=== PATIENT | male | born 1955 | race Caucasian/White ===

== ENCOUNTER 2024-04-15 12:33 | Inpatient (IN) | payer MEDICARE, MEDICAID, SELFPAY ==
[2024-04-15] VITALS (7 sets, daily range): BP systolic 115–158; BP diastolic 76–100; PULSE 66–94; RESP 18–19; TEMP 36.5–36.6; O2SAT 93–96; BMI 25.0
--- NOTE | 2024-04-15 12:36 | XRR_ITS ---
PROCEDURE INFORMATION: Exam: XR Chest Exam date and time: 04/15/2024 2:33 PM Age: 68 years old Clinical indication: Pain; Angina pectoris; Additional info: Chest pain TECHNIQUE: Imaging protocol: Radiologic exam of the chest. Views: 1 view. COMPARISON: No relevant prior studies available. FINDINGS: Lungs: There is no consolidation. Pleural spaces: There is no pleural effusion or pneumothorax. Heart/Mediastinum: Cardiomediastinal contours are unremarkable. Bones/joints: Bones are unremarkable. XR/XR chest 1V portable [id number] IMPRESSION: No acute findings.
--- NOTE | 2024-04-15 12:37 | ECG_ITS ---
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 Measurements Intervals [place] Rate: 94 P: 44 RI: 136 QRS: 3 QRSD: 88 T: 59 QT: 355 QTc: 445 Interpretive Statements SINUS RHYTHM ST ELEVATION, CONSIDER INFERIOR INJURY [MARKED ST ELEVATION W/O NORMALLY INFLECTED T-WAVE IN II/aVF] ACUTE RI No previous ECG available for comparison Electronically Signed On 04-15-2024 22:00:39 CDT by Cheryl Trivedi M.D. [id number]
--- NOTE | 2024-04-15 12:38 | XACV_ITS ---
Exam Room: [facility] Ht: 170 cm Wt: 73 kg BSA: 1.86 m2 Gender: Male : 1955 Any Known Allergies: No known allergies Exam Priority: Routine Procedure(s): Procedure Description: Diagnostic procedure Procedure Description: PCI procedure Procedure Description: Drug Eluting Coronary Stent Procedure Description: PTCA Procedure Description: Miscellaneous Procedure Description: ACT Procedure Description: Coronary Angiography Diagnostic Cath Status: Emergency Diagnostic Findings * Left Main is very short and has no significant disease. * Left Anterior Descending has no significant disease. * Right Coronary Artery has mild luminal irregularities. * Mid Circumflex: total thrombotic occlusion, ALY: 0 flow. This is culprit vessel for ST elevation WI. * Coronary angiography shows right dominance. PCI Status: Emergency PCI Indication: Immediate PCI for STEMI Interventional Findings * Procedure detail: We engaged left main artery with XB 3.0 guide catheter. IV heparin was administered to maintain anticoagulation. 0.014 run-through guidewire was used to cross the totally occluded segment. 2.5 x 12 mm semicompliant balloon was used to perform predilation. This was followed by placement of 2.75 x 18 mm resolute Kimball drug-eluting stent. There was a sidebranch plaque shift. It was a small sized sidebranch. We ballooned the ostium of the sidebranch with a 1.5 mm balloon. At this time final angiogram was performed that showed excellent stent expansion, no residual stenosis and ALY-3 flow. Guidewire and guide catheter were removed. 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 * Mid Circumflex: 100% stenosis treated with a AB TREK 2.50X12 RX BALLOON, MDDeepak R MASHA 2.75X18 TAHIR, and AB MINI TREK 1.50X12 RX BALLOON. 0% residual stenosis, ALY: 3 flow. Conclusions 1. Total thrombotic occlusion of mid left circumflex artery s/p successful revascularization with 1 stent.. 2. Mid Circumflex was treated with a Balloon, Drug Eluting Stent, and Balloon. Recommendations * Dual antiplatelet therapy with aspirin and plavix for atleast 1 year. * Aggressive risk factor modification. Smoking cessation advised. * High intensity statin therapy. * Outpatient cardiology follow up in 2 weeks. Interventional RX Recommendation: PCI w/o planned CABG Diagnostic RX Recommendation: PCI w/o planned CABG Anticoagulation: Heparin Pressures Phase:Rest AO : 141 / 91 ( 113 ) @ 1:57:00 PM 108 / 77 ( 90 ) @ 1:59:00 PM 105 / 70 ( 86 ) @ 2:03:00 PM 99 / 66 ( 82 ) @ 2:06:00 PM 95 / 74 ( 85 ) @ 2:08:00 PM 100 / 58 ( 76 ) @ 2:14:00 PM 99 / 82 ( 92 ) @ 2:22:00 PM Clinical Evaluation EBL: 5mL-10mL Procedural Details Pre-Procedure Time Out. Identified patient by full name and date of as verbalized by the patient/guarantor. Does the consent match the physician's order: N/A Emergent. Accurate & Complete Informed Consent: N/A Emergent. Inpatient/Outpatient History & Physical on Chart: N/A Emergent. If H&P is completed, is and addenduem needed: N/A Emergent; If yes, is the addendum complete: N/A Emergent. Visualize and Verify Site with Patient/Guarantor: N/A. Relevant Radiology Images available: N/A Emergent. Pre-op teaching completed and patient verbalized understanding. The risks, benefits, and alternatives of sedation and/or procedure were discussed by physician. The patient agrees to continue. Procedure started. Current Diagnosis : STEMI. [facility] Clinical Fraility Score: 3: Managing Well. 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 Chest Pain Symptom Assessment: Typical Angina Symptoms. Cardiovascular Instability: Yes, if yes, Persistant Ischemic Symptoms. Correct patient, site and procedure confirmed by cath team. Current diagnosis: STEMI. PERRLA. Strong, equal hand coiler operator bilaterally. Lungs clear x 5 lobes. IV Site on Arrival: 18 gauge in the left anticubital. IV Fluids: 0.9% NaCl at KVO. 0 mL infused prior to orthodontic lab technician. Pre Procedural Pulses: bilateral dorsalis pedis was 3+. Pre Procedural Pulses: bilateral posterior tibial was 3+. Pre Procedural Pulses: right radial was 2+. Oxygen started at 2liters/min via nasal canula. right groin was prepped with chloroprep then draped in the usual sterile fashion. right radial was prepped with chloroprep then draped in the usual sterile fashion. Baseline sample Acquired. HR: 74 BPM. Physician arrived. Physician scrubbed in. Immediate Pre-Procedure Time Out. Correct Patient: N/A Emergent; Correct Procedure: N/A Emergent; Correct Site: N/A Emergent; Correct Patient Position: N/A Emergent; Correct Supplies: N/A Emergent; Dried Flammable Prep: N/A Emergent; Blood Products Available: N/A Emergent;. Lidocaine 1% infiltrated to the right radial. Arterial access obtained. A 5 togolese TIG catheter in over wire. Multiple views taken of left coronary artery. Catheter redirected to the RCA. Catheter removed over the exchange wire. PCI Indication: STEMI. 6 togolese XB 3 guide catheter was inserted over the wire. Runthrough guidewire was advanced through the guide catheter to lesion in the mid Circ. Inflation number : 1 A AB TREK 2.50X12 RX BALLOON was prepped and advanced across the Mid CX , then inflated to 10 GENARO for 0:12 seconds. Inflation number: 2 The AB TREK 2.50X12 RX BALLOON was reinflated across the Mid CX, to 8 GENARO for 0:08 seconds. Balloon out. Results checked. Inflation Number : 3 A BAYRON [place] MASHA 2.75X18 TAHIR -Lot Number# _[id number] EXP: 07/12/2024 was prepped and advanced across the Mid CX. The stent was deployed at 12 GENARO for 0:21 seconds. Stent balloon out over wire. Results checked. PCI Indication : Immediate PCI for STEMI. 2.0x12mm Mini Trek balloon inserted and advanced to the CX. Oxygen turned up to 3liters. Balloon unable to cross. Balloon out OTW. Inflation number : 4 A AB MINI TREK 1.50X12 RX BALLOON was prepped and advanced across the Mid CX , then inflated to 8 GENARO for 0:12 seconds. ACT drawn. Results out of range high seconds. Therapeutic limits - pre-heparin administration 90-150 seconds and monitoring heparin during a vascular procedure >250 seconds. Balloon out. Wire out. Results checked. Guide catheter out. A 5 togolese JL3.5 catheter in over wire. Catheter removed over the standard wire. A 5 togolese JR4 catheter in over wire. Multiple views taken of right coronary artery. Catheter removed over the standard wire. A 5 togolese TIG catheter in over wire. Multiple views taken of left coronary artery. Catheter removed over the exchange wire. ACT drawn. Results 289 seconds. Therapeutic limits - pre-heparin administration 90-150 seconds and monitoring heparin during a vascular procedure >250 seconds. A TR Band was successful obtaining hemostatsis at the Right Radial artery insertion site. Complications: None. Post Procedure: Pulses reassessed and unchanged. PERRLA. Strong, equal hand coiler operator bilaterally. No VTE prophylaxis required. Medication's Wasted: Nitro = 49.6 mg. Medication's Wasted: Lidocaine 1% = 15 mL. Medication's Wasted: Other = Versed 1 mg. Total IV fluids: 50 mL. Post-op diagnosis: Stent to the CX. Estimated blood loss: 5mL-10mL. Responsiveness - Normal response to verbal stimuli; alert and oriented, PERRLA. Airway - Unaffected, no intervention required; spontaneous ventilation. Circulation: W/N/L, pulses unchanged. Nausea/Vomiting: No. Procedure completed. Vital chart was stopped. Patient transferred by wheelchair to 1st floor. Access Site Site: Right Radial artery Sheath Size: 6 Fr Hemostasis Method: TR Band Hemostasis Success: Successful Procedure Medications Start: 12:51 PM Stop: 12:51 PM Medication: Versed Amount: 1 mg Route: I.V. Start: 12:52 PM Stop: 12:52 PM Medication: Nitrogylcerin Amount: 200 mcg Route: I.A. Start: 12:53 PM Stop: 12:53 PM Medication: Fentanyl Amount: 25 mcg Route: I.V. Start: 12:56 PM Stop: 12:56 PM Medication: Heparin Amount: 3000 units Route: I.V. Start: 12:57 PM Stop: 12:57 PM Medication: Fentanyl Amount: 25 mcg Route: I.V. Start: 1:04 PM Stop: 1:04 PM Medication: Versed Amount: 1 mg Route: I.V. Start: 1:10 PM Stop: 1:10 PM Medication: Heparin Amount: 1000 units Route: I.V. Start: 1:13 PM Stop: 1:13 PM Medication: Nitrogylcerin Amount: 200 mcg Route: I.C. Start: 1:13 PM Stop: 1:13 PM Medication: Fentanyl Amount: 25 mcg Route: I.V. Start: 1:21 PM Stop: 1:21 PM Medication: Versed Amount: 1 mg Route: I.V. Start: 1:24 PM Stop: 1:24 PM Medication: Fentanyl Amount: 25 mcg Route: I.V. I, the attending physician, have reviewed and verified all procedure medications. Yes, all medications given per verbal order History/Risk Factors Hypertension: No Dyslipidemia: No Peripheral Arterial Disease (PAD): No Myocardial Infarction (WI): No Obesity: No Renal Disease: No Tobacco Use: Current/Recent(w/in 1 year) Prior Interventions PCI: No CABG: No Valve Surgery: No Report Signatures Finalized by John Alarcon MD on 04/18/2024 03:39 PM
--- NOTE | 2024-04-15 12:40 | ED_ITS ---
HPI - Chest Pain General: Chief Complaint: Chest Pain Stated Complaint: CHEST PAIN Time Seen by Provider: 04/15/24 12:36 Source: patient Mode of arrival: ambulatory History of Present Illness: 68-year-old male presents to the emergen cy room with complaints of chest pain that began shortly before arrival. 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 He has Nitropaste in place when he arrives here. He states he previously had a heart attack had an angiogram in [place] about 3 years ago but tells me they did not place any stents to the best of his knowledge. Patient is not diabetic and does not smoke MD complaint: chest pain Onset (ago): minute(s) Prior episodes: Yes Onset: during exertion Pain location: substernal Pain radiation: none Severity: moderate Relieving factors: nothing Exacerbating factors: nothing Associated symptoms: Deny abdominal pain, diaphoresis, dyspnea, fever(s), leg edema, nausea, palpitations, sense of impending doom, syncope or vomiting Treatment prior to arrival: none Review of Systems Const: Denies: fever(s), chills, fatigue, malaise or diaphoresis Card: Reports: chest pain; Denies: palpitations or syncope Resp: Denies: dyspnea GI: Denies: abdominal pain, nausea or vomiting : Denies: dysuria, urinary frequency or urinary urgency Musc: Denies: neck pain or back pain Skin/Breast: Denies: rash Physical Exam Const: GENERAL APPEARANCE: cooperative and comfortable ORIENTATION/CONSCIOUSNESS: Yes awake, Yes oriented to person, Yes oriented to place and Yes oriented to time HENMT: COMMON NORMALS: normocephalic, atraumatic and hearing grossly normal bilaterally HEAD & SCALP: normocephalic and atraumatic Resp: COMMON NORMALS: normal respiratory effort, No retractions, No use of accessory muscles and clear to auscultation bilaterally AUSCULTATION: clear to auscultation bilaterally Cardio: COMMON NORMALS: regular rate, regular rhythm and No murmurs present (Cardio) RATE: regular rate RHYTHM: regular rhythm GI: COMMON NORMALS: Soft to palpation and No hepatosplenomegaly present AUSCULTATION: Yes normoactive bowel sounds PALPATION: Yes Soft to palpation, No Tenderness to palpation present (GI), No Guarding due to palpation present (GI) and Yes No hepatosplenomegaly present Extremity: COMMON NORMALS: normal to inspection, capillary refill normal, no clubbing, cyanosis or edema, no calf tenderness and no pedal edema Neuro: SENSORIUM/ORIENTATION: Yes oriented to person, Yes oriented to place and Yes oriented to time Skin: COMMON NORMALS: no rashes or lesions noted GENERAL SKIN EXAM: no rashes or lesions noted Course Vital Signs: Vital signs: Vital Signs Temperature 97.8 F 04/15/24 12:33 Pulse Rate 93 04/15/24 12:33 Respiratory Rate 18 04/15/24 12:33 Blood Pressure 158/100 04/15/24 12:33 Pulse Oximetry 94 04/15/24 12:33 Oxygen Delivery Me thod Room Air 04/15/24 12:33 MDM - Chest Pain Medical Decision Making STEMI was called in the field by EMS had been activated prior to patient's arrival on arrival EKG confirms patient is still having chest pain he is topical nitro in place his blood pressure remains good EKG shows Inferior ST elevation with T wave inversion and reciprocal changes in V1 and 2. Discussed with Dr. Alarcon who is at the bedside. He is taking the patient directly to the Terrazzo Supervisor. She has received Plavix and heparin. Received aspirin in the field. Medical Records I reviewed the patient's medical records. Lab Data I reviewed the patient's lab results. XR interpretation done by ED provider, pending radiology final review Discharge Plan Discharge Patient Disposition: Admitted As Inpatient Clinical Impression: ST elevation myocardial infarction (STEMI) Condition: Stable Coding Level of Care Code ED Hydroelectric Component Machinist for Edita Munoz
[2024-04-15] MEDS: heparin 5,000 unit/mL INJ 1 mL 4000 UNIT IVP (12:43)
[2024-04-15] MEDS: clopidogrel 300 mg Tablet 600 MG PO (12:44)
--- NOTE | 2024-04-15 12:45 | P.HP_ITS ---
Providers/Chief Complaint 2 Admitting Physician: John Alarcon MD/ Interventional cardiology Chief Complaint: CHEST PAIN History of Present Illness Amado Loaiza is a 68 year old male with past medical history of hypertension presented to hospital with 1 hour of substernal chest pain. He was initially severe but has improved since some now. EKG performed by EMS showing distribution of the lateral leads. STEMI alert was called and patient going to Production Lapping Machine Operator emergently. Review of Systems 2 Const: Denies: fever(s), chills, fatigue, malaise or diaphoresis Card: Reports: chest pain; Denies: palpitations or syncope Resp: Denies: dyspnea GI: Denies: abdominal pain, nausea or vomiting : Denies: dysuria, urinary frequency or urinary urgency Musc: Denies: neck pain or back pain Skin/Breast: Denies: rash Medications/Allergies Home Medications Medication Instructions Recorded Confirmed Last Taken Type lisinopril 20 mg tablet 20 mg PO BID 04/15/24 04/15/24 Unknown History Allergies Allergy/AdvReac Type Severity Reaction Status Date / Time No Known Allergies Allergy Verified 04/15/24 12:38 PFSH Acute 2 PFSH: Medical History Tobacco abuse Hypertension Social History Smoking and tobacco/nicotine status: current every day tobacco/nicotine user Vitals/I&O/Wt Last Vital Signs Temp 97.8 F 04/15/24 12:33 Pulse 93 04/15/24 12:33 Resp 18 04/15/24 12:33 BP 158/100 04/15/24 12:33 Pulse Ox 94 04/15/24 12:33 O2 Del Method Room Air 04/15/24 12:33 Weight last 48 hrs Weight 160 lb Physical Exam 2 Narrative: GENERAL: Patient is alert, awake and oriented x3. [] NECK: No jugular vein distension. [] HEENT: No cyanosis. No icterus. No pallor. [] HEART: Regular S1 and S2. No murmur, rub or gallop. [] LUNGS: Clear to auscultate bilaterally. [] CENTRAL NERVOUS SYSTEM: Grossly nonfocal. [] EXTREMITIES: Lower extremities with 1+ edema bilaterally. Data 04/15/24 12:41 04/15/24 12:41 A&P Assessment and plan (1) ST elevation myocardial infarction (STEMI): (2) Hypertension: (3) Tobacco abuse: Plan Patient has presented with acute lateral wall ST elevation RI. We will emergently take patient to the Production Lapping Machine Operator. Risks and benefits of the procedure have been discussed with the patient. He understands them and wants to proceed. Given aspirin and Plavix load. Also received bolus of heparin. Will order echocardiogram. Attestations 2 Medical Necessity Statement*: Care expected to cross 2 midnights. Patient has presented with acute ST elevation RI and going for emergent coronary angiogram with possible PCI. Coding Level of Care Code Acute Code for [facility] Diagnoses ST elevation myocardial infarction (STEMI) I21.3 Hypertension I10 Tobacco abuse Z72.0
[2024-04-15 12:50] LABS: Basophils % 0.4 %; Eosinophils # 0.2 10^3/uL (0.0-0.8); Eosinophils % 2.1 %; Hematocrit 46.5 % (37-53); Lymphocytes # 4.3 10^3/uL (0.8-4.8); Lymphocytes % 45.6 %; Mean Corpuscular HGB Conc 34.2 g/dL (30-55); Mean Corpuscular Hemoglobin 31.4 pg (27-33); Mean Corpuscular Volume 91.7 fl (82-101); Mean Platelet Volume 9.4 fL (7.4-10.4); Monocytes # 0.6 10^3/uL (0.2-0.9); Neutrophils # 4.32 10^3/uL (1.8-7.7); Neutrophils % 45.6 %; Nucleated Red Blood Cells % 0 %; Platelet Count 290 10^3/cmm (157-399); Red Blood Count 5.07 10^6/uL (3.85-5.65); Red Cell Distribution Width 12.7 % (12.1-15.1); White Blood Count 9.49 10^3/uL (3.29-11.43)
[2024-04-15 13:04] LABS: Troponin(5th) Baseline 11 ng/L (0-15)
[2024-04-15 13:08] LABS: Alanine Aminotransferase 14 U/L (0-41); Albumin Level 3.9 g/dL (3.5-5.2); Alkaline Phosphatase 86 U/L (40-130); Anion Gap 13.2 (5-19); Aspartate Amino Transferase 13 U/L (0-40); Blood Urea Nitrogen 17 mg/dL (8-23); Calcium 9.3 mg/dL (8.5-10.5); Carbon Dioxide 22 mmol/L (22-29); Chloride 103 mmol/L (98-107); Creatinine Clr Calc Pharmacy 63.3128; Globulin 2.3 g/dL (1.3-4.6); Glomerular Filtration Rate 66.8 mL/min (90-130); Glucose 112 mg/dL (65-115); Osmolality Calculated 280 mOsm/kg (285-295); Potassium 4.2 mmol/L (3.5-5.1); Sodium 134 mmol/L (136-145); Total Bilirubin 0.8 mg/dL (0.15-1.2); Total Protein 6.2 g/dL (6.6-8.7)
--- NOTE | 2024-04-15 13:41 | USCV_ITS ---
Amado Loaiza Age: 68 Gender: M : 1955 Exam Date: 04/15/2024 15:15 Ordering Phys: John Alarcon M.D ([email or web address]) Technologist: [place] [facility] [place]: post cath BP: 110 / 77 HR: 75 Rhythm: Sinus Technical Quality: Adequate MEASUREMENTS (Male / Female) Normal Values 2D ECHO LV Diastolic Diameter PLAX 3.7 cm 4.2 - 5.9 / 3.9 - 5.3 cm IVS Diastolic Thickness 1.3 cm 0.6 - 1.0 / 0.6 - 0.9 cm IVS Systolic Thickness 1.8 cm LVPW Diastolic Thickness 1.3 cm 0.6 - 1.0 / 0.6 - 0.9 cm LVPW Systolic Thickness 1.6 cm LVOT Diameter 1.9 cm LV Ejection Fraction 2D Teich 64.1 % LV Ejection Fraction MOD 2C 52.5 % LV Ejection Fraction 2C AL 53.1 % LA Diameter 3.7 cm RA Systolic Volume 4C AL 21.9 ml RA Systolic Volume 4C MOD 21.1 ml Aorta at Sinotubular Diameter 2.7 cm M-MODE LA Ao Ratio MM 1.3 AV Cusp Separation MM 1.8 cm DOPPLER AV Peak Velocity 131.0 cm/s LVOT Peak Velocity 78.0 cm/s AV Area Cont Eq vti 2.0 cm squared AV Area Cont Eq pk 1.7 cm squared MV Peak Velocity 96.0 cm/s MV Area PHT 3.1 cm squared Mitral E to A Ratio 0.7 TV Peak Velocity 142.0 cm/s TR Peak Velocity 160.0 cm/s TR Peak Gradient 10.2 mmHg TV Peak E Velocity 95.0 cm/s Right Atrial Pressure 3.0 mmHg Pulmonary Artery Systolic Pressu 13.2 mmHg PV Peak Velocity 72.0 cm/s FINDINGS Left Ventricle Left ventricle is normal size. LV systolic function is normal with EF 55 to 60%. No regional wall motion abnormalities are seen. Grade 1 diastolic dysfunction Right Ventricle Normal in size and function Right Atrium Normal in size Left Atrium Normal in size Mitral Valve Structurally normal mitral valve. Trace mitral regurgitation. Aortic Valve Aortic valve is thickened and calcified. No significant stenosis or regurgitation. Tricuspid Valve Insufficient TR jet to evaluate RVSP. Pulmonic Valve Not well visualized Pericardium Normal Aorta Normal in size IVC Not well visualized CONCLUSIONS LV systolic function is normal with EF of 55-60% Grade 1 diastolic dysfunction Trace mitral regurgitation No comparison studies are available. John Alarcon MD (Electronically Signed) Final Date: 15 April 2024 21:15 S
--- NOTE | 2024-04-15 14:09 | ECG_ITS ---
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 Measurements Intervals [place] Rate: 68 P: 41 [place]: 138 QRS: 2 QRSD: 95 T: 32 QT: 412 QTc: 440 Interpretive Statements SINUS RHYTHM Compared to ECG 04/15/2024 12:35:36 ST (T wave) deviation no longer present Myocardial infarct finding no longer present Electronically Signed On 04-15-2024 22:11:33 CDT by Cheryl Trivedi M.D. [id number]
[2024-04-15 16:36] LABS: Troponin 5 2HR 294.8 ng/L (0-15); Troponin 5 2HR Delta 283.8 ABS# (0-10)
[2024-04-15] MEDS: sodium chloride 0.9% 1,000 ML 100 ML IV (17:12)
[2024-04-15] MEDS: nicotine 21 mg Patch 1 PATCH TRANSDERMA (18:35)
[2024-04-15] MEDS: lisinopril 20 mg Tablet PO (18:35)
--- NOTE | 2024-04-15 18:38 | ECG_ITS ---
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 Measurements Intervals [place] Rate: 61 P: 11 [place]: 138 QRS: -7 QRSD: 94 T: 26 QT: 395 QTc: 398 Interpretive Statements SINUS RHYTHM NONSPECIFIC T-WAVE ABNORMALITY Compared to ECG 04/15/2024 14:09:27 T-wave abnormality now present Electronically Signed On 04-15-2024 22:13:05 CDT by Cheryl Trivedi M.D. [id number]
[2024-04-15 19:11] LABS: Troponin 5 6HR 938.9 ng/L (0-15); Troponin 5 6HR Delta 927.9 ng/L (0-12)
[2024-04-15] MEDS: metoprolol tartrate 25 mg Tablet PO (21:24)
[2024-04-15] MEDS: atorvastatin 40 mg Tablet 80 MG PO (21:24)
[2024-04-16 05:08] LABS: Basophils # 0.1 10^3/uL (0.0-0.1); Basophils % 0.4 %; Eosinophils # 0.2 10^3/uL (0.0-0.8); Eosinophils % 1.7 %; Hematocrit 46.1 % (37-53); Lymphocytes # 3.9 10^3/uL (0.8-4.8); Lymphocytes % 32.4 %; Mean Corpuscular HGB Conc 33.2 g/dL (30-55); Mean Corpuscular Hemoglobin 31.1 pg (27-33); Mean Corpuscular Volume 93.7 fl (82-101); Mean Platelet Volume 9.3 fL (7.4-10.4); Monocytes # 0.8 10^3/uL (0.2-0.9); Monocytes % 6.3 %; Neutrophils # 6.98 10^3/uL (1.8-7.7); Neutrophils % 58.9 %; Nucleated Red Blood Cells % 0 %; Platelet Count 245 10^3/cmm (157-399); Red Blood Count 4.92 10^6/uL (3.85-5.65); Red Cell Distribution Width 12.9 % (12.1-15.1); White Blood Count 11.87 10^3/uL (3.29-11.43)
[2024-04-16 05:27] LABS: Blood Urea Nitrogen 12 mg/dL (8-23); Calcium 8.9 mg/dL (8.5-10.5); Carbon Dioxide 20 mmol/L (22-29); Chloride 106 mmol/L (98-107); Glomerular Filtration Rate 74.5 mL/min (90-130); Glucose 98 mg/dL (65-115); Osmolality Calculated 282 mOsm/kg (285-295); Sodium 136 mmol/L (136-145)
[2024-04-16 05:38] LABS: Anion Gap 14.6 (5-19); Potassium 4.6 mmol/L (3.5-5.1)
[2024-04-16 06:00] VITALS: PULSE 66; BMI 25.0
[2024-04-16 06:11] VITALS: BP 134/87; PULSE 66; RESP 21; O2SAT 93
[2024-04-16 07:42] VITALS: BP 150/98; PULSE 70; RESP 12; TEMP 36.7; O2SAT 90
--- NOTE | 2024-04-16 08:29 | PM.DCS ---
Discharge Providers Date of Admission: 04/15/24 13:14 Date of Discharge: April 16, 2024 Attending Provider at Admission: John Alarcon M.D Attending Provider at Discharge: John Alarcon M.D Diagnoses at Discharge Discharge Diagnosis (1) ST elevation myocardial infarction (STEMI): Status: Acute (2) Hypertension: Status: Acute (3) Tobacco abuse: Status: Acute Reason for Visit Reason for Visit: CHEST PAIN Brief History: 68 year old male with past medical history of hypertension presented to hospital with 1 hour of substernal chest pain. He was initially severe but has improved since some now. EKG performed by EMS showing distribution of the lateral leads. STEMI alert was called and patient going to [place] [facility] emergently. 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 He was observed overnight and stayed stable. Echo showed normal LV systolic function. He was discharged home on dual antiplatelet therapy with aspirin and Plavix. Physical Exam Narrative: GENERAL: Patient is alert, awake and oriented x3. [] NECK: No jugular vein distension. [] HEENT: No cyanosis. No icterus. No pallor. [] HEART: Regular S1 and S2. No murmur, rub or gallop. [] LUNGS: Clear to auscultate bilaterally. [] CENTRAL NERVOUS SYSTEM: Grossly nonfocal. [] EXTREMITIES: Lower extremities with 1+ edema bilaterally. Discharge Data Studies Completed and Pending Completed Studies During Hospitalization Category Date Time Status XR chest 1V portable [id number] Stat Exams 04/15/24 12:36 Completed CV. 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 Laboratory Results WBC 11.87 10^3/uL (3.29-11.43) H 04/16/24 04:54 RBC 4.92 10^6/uL (3.85-5.65) 04/16/24 04:54 Hgb 15.30 g/dL (11.27-16.99) 04/16/24 04:54 Hct 46.1 % (37-53) 04/16/24 04:54 MCV 93.7 fl (82-101) 04/16/24 04:54 MCH 31.1 pg (27-33) 04/16/24 04:54 MCHC 33.2 g/dL (30-55) 04/16/24 04:54 RDW 12.9 % (12.1-15.1) 04/16/24 04:54 Plt Count 245 10^3/cmm (157-399) 04/16/24 04:54 MPV 9.3 fL (7.4-10.4) 04/16/24 04:54 Neut % (Auto) 58.9 % 04/16/24 04:54 Lymph % (Auto) 32.4 % 04/16/24 04:54 [place] % (Auto) 6.3 % 04/16/24 04:54 Eos % (Auto) 1.7 % 04/16/24 04:54 Baso % (Auto) 0.4 % 04/16/24 04:54 Neut # (Auto) 6.98 10^3/uL (1.8-7.7) 04/16/24 04:54 Lymph # (Auto) 3.9 10^3/uL (0.8-4.8) 04/16/24 04:54 [place] # (Auto) 0.8 10^3/uL (0.2-0.9) 04/16/24 04:54 Eos # (Auto) 0.2 10^3/uL (0.0-0.8) 04/16/24 04:54 Baso # (Auto) 0.1 10^3/uL (0.0-0.1) 04/16/24 04:54 Nucleated RBC % (auto) 0 % 04/16/24 04:54 Nucleated RBCs # 0.0 /100WBC 04/16/24 04:54 Sodium 136 mmol/L (136-145) 04/16/24 04:54 Potassium 4.6 mmol/L (3.5-5.1) 04/16/24 04:54 Chloride 106 mmol/L (98-107) 04/16/24 04:54 Carbon Dioxide 20 mmol/L (22-29) L 04/16/24 04:54 Anion Gap 14.6 (5-19) 04/16/24 04:54 BUN 12 mg/dL (8-23) 04/16/24 04:54 Creatinine 1.0 mg/dL (0.7-1.2) 04/16/24 04:54 GFR Calculation 74.5 mL/min (90-130) L 04/16/24 04:54 Glucose 98 mg/dL (65-115) 04/16/24 04:54 Calculated Osmolality 282 mOsm/kg (285-295) L 04/16/24 04:54 Calcium 8.9 mg/dL (8.5-10.5) 04/16/24 04:54 Total Bilirubin 0.8 mg/dL (0.15-1.2) 04/15/24 12:41 AST 13 U/L (0-40) 04/15/24 12:41 ALT 14 U/L (0-41) 04/15/24 12:41 Alkaline Phosphatase 86 U/L (40-130) 04/15/24 12:41 Troponin T Baseline 11 ng/L (0-15) 04/15/24 12:41 Troponin T 120 Minute 294.8 ng/L (0-15) H 04/15/24 15:02 Delta Troponin T 283.8 ABS# (0-10) H* 04/15/24 15:02 Troponin T Hi Sens 6Hr 938.9 ng/L (0-15) H 04/15/24 18:34 Troponin T Hi Sens 6Hr Delta 927.9 ng/L (0-12) H* 04/15/24 18:34 Total Protein 6.2 g/dL (6.6-8.7) L 04/15/24 12:41 Albumin 3.9 g/dL (3.5-5.2) 04/15/24 12:41 Globulin 2.3 g/dL (1.3-4.6) 04/15/24 12:41 Vitals Last Vital Signs Temp 98.0 F 04/16/24 07:42 Pulse 70 04/16/24 07:42 Resp 12 04/16/24 07:42 BP 150/98 04/16/24 07:42 Pulse Ox 90 04/16/24 07:42 O2 Del Method Room Air 04/16/24 07:42 Discharge Plan Discharge Patient Disposition: Home Condition: Stable Prescriptions: New atorvastatin 40 mg Tablet 80 mg PO BEDTIME Qty: 90 3RF clopidogrel 75 mg Tablet 75 mg PO DAILY Qty: 90 3RF aspirin 81 mg Tablet,Delayed Release (Dr/Ec) 81 mg PO DAILY Qty: 90 3RF metoprolol tartrate 25 mg Tablet 25 mg PO BID@0900,2100 Qty: 120 3RF Continued lisinopril 20 mg tablet 20 mg PO BID Discharge Orders: Discharge Order (Routine); Ordered 04/16/24 Ordered By: John Alarcon Referrals: Radha Sandoval FNP [Nurse Practitioner] - 05/12/24 2:30 pm Discharge Diet: Cardiac Patient Instructions: Coronary Angioplasty (DC), Opioid Safety, Post Angiogram Home Care Instructions, Post Heart Attack Stoplight Discharge Attestations Time Spent in Discharge Care*: less than 30 min Quality Metrics Clinical Quality Measures [ Acute Myocardial Infaction { Clinical Trial Participant: No; Contraindication to aspirin: None; Aspirin prescribed; Contraindication to statin: None; Statin prescribed; Contraindication to PCI: None; PCI performed;}] Coding Level of Care Code Acute Code for [facility] Diagnoses ST elevation myocardial infarction (STEMI) I21.3 Hypertension I10 Tobacco abuse Z72.0
--- NOTE | 2024-04-16 08:42 | PC.SOCIAL ---
IMM Update Pg. 2 of IMM updated and reviewed with patient, who verbalized understanding. Copy provided.
--- NOTE | 2024-04-16 08:57 | PC.CHAP ---
Pastoral Care Encounter/Spiritual Assessment Type of Contact [] Declined manager cancer visit [] Patient/Family/Request visit [] Outpatient visit [] Follow-up visit [] Physician referral [] Code/Alert [x] Routine visit [] Staff referral [] Actively dying [] Patient sleeping [x] Family support [] [] Out of room [] Palliative care [] [] Receiving care in room [] Pre-surgical visit [] Trauma [] Long length of stay [] ICU visit [] Other: Relational/Emotional Strength [x] Patient feels connected with others/family/visitors/staff [] Distress [] Loneliness/isolation [] Abandonment Spirituality of Patient [x] Person of Vidya [] Attends Restoration of their Vidya [x] Believes in Prayer [] Reads Bible or Congregation materials [] There are Spiritual issues to be addressed Hydraulic Tester Interventions [x] Prayer [x] Active listening [] Non-anxious presence [x] Spiritual/emotional support [] Crisis/trauma care [] Spiritual counseling [] Bereavement support [] Provided bereavement packet [] Provided Bible/devotional materials [] Provided toy/stuffed animal, coloring book to patient or family member [] Provided Communion [] Anointing/[place] [] Salvation [x] Completed spiritual assessment [] Other: Impact on Illness or Injury [] Angry [] Fearful [] Anxious [] Often cries [] Exhaustion [] Unable to work [] Unable to attend pentecostalism [] Unable to walk/stand [] Unable to read [] Unable to drive [] Unable to eat/drink [] Unable to sleep [] Unable to be with family [] Patient intubated [] Other: Summary Time spent with patient 5 min
[2024-04-16] MEDS: metoprolol tartrate 25 mg Tablet PO (09:00)
[2024-04-16] MEDS: lisinopril 20 mg Tablet PO (09:00)
[2024-04-16] MEDS: clopidogrel 75 mg Tablet PO (09:00)
[2024-04-16] MEDS: nicotine 21 mg Patch 1 PATCH TRANSDERMA (09:00)
[2024-04-16] MEDS: aspirin 81 mg EC Tablet PO (09:00)
[2024-04-16 09:31] VITALS: BP 150/98; PULSE 70; RESP 12; TEMP 36.7; O2SAT 90
--- NOTE | 2024-04-16 10:08 | PC.NURSE ---
discharge instructions given and explained.pt and daughter verb understanding of instructions.discharged via w/c to exit at this time.daughter to drive pt home.
== END 2024-04-16 10:09 | disposition home or self-care (01) | DRG 322 ==
LOC: ER 13:08 → CSU 13:15
PROVIDERS: Admitting Provider Internal Medicine; Emergency Provider Family Medicine; Visit Provider Internal Medicine
PROC: 027034Z Dilation of Coronary Artery, One Artery with Drug-eluting Intraluminal Device, Percutaneous Approach (ICD-10-PCS; principal; 2024-04-15 12:30)
PROC: 027034Z Dilation of Coronary Artery, One Artery with Drug-eluting Intraluminal Device, Percutaneous Approach (ICD-10-PCS; 2024-04-15 12:30)
DX: I21.21 ST elevation (STEMI) myocardial infarction involving left circumflex coronary artery (principal); I10 Essential (primary) hypertension; F17.200 Nicotine dependence, unspecified, uncomplicated
CPT/HCPCS: 36415; 71045; 80048; 80053; 84484; 85025; 85347; 93005; 93306; 93454; 96374; 96375; 99152; 99153; 99285; C1725; C1769; C1874; C1887; C1894; C9600; J1644; J2250; J3010; J7030; Q9967

== ENCOUNTER → 2024-05-12 14:50 | Outpatient (BNVA) | payer MEDICARE, MEDICAID, SELFPAY | PROVIDERS: PCP Family Medicine; Visit Provider Nurse Practitioner Family | DX: I21.3 ST elevation (STEMI) myocardial infarction of unspecified site (principal) | CPT/HCPCS: 36415; 80048; 99214 ==

== ENCOUNTER 2024-05-17 12:23 | Emergency (ER) | payer MEDICARE, MEDICAID, SELFPAY ==
[2024-05-17 12:26] VITALS: BP 214/110; PULSE 67; RESP 18; TEMP 36.8; O2SAT 97; BMI 25.0
--- NOTE | 2024-05-17 13:43 | ED_ITS ---
HPI - General Adult 2 General: Chief complaint: General Medical Stated complaint: stint, bp 180/120 Time Seen by Provider: 05/17/24 13:12 Source: patient Mode of arrival: ambulatory Limitations: no limitations History of Present Illness: 68-year-old male states he had had stent s placed 2 weeks ago he states has been having some hypertension since then he states that his PCP visit on Friday was hypertensive had no med adjustment states that today his blood pressure is running in the 200s and 1 to be checked out he denies any chest pain he denies any shortness of breath has no other complaints at this time. Associated symptoms: Deny chest pain, dyspnea, headache(s), nausea, rash or vomiting Review of Systems 2 Const: Denies: fever(s), chills, body aches or change in appetite ENMT: Denies: throat pain or dental pain Card: Denies: chest pain Resp: Denies: dyspnea GI: Denies: abdominal pain, nausea, vomiting or diarrhea Musc: Denies: neck pain or back pain Skin/Breast: Denies: rash Neuro: Denies: headache(s) PFSH ED 2 PFSH: Medical History ST elevation myocardial infarction (STEMI) Tobacco abuse Hypertension Social History Smoking and tobacco/nicotine status: current every day tobacco/nicotine user Physical Exam 2 Const: COMMON NORMALS: no acute distress, patient oriented x3 and healthy appearing HENMT: COMMON NORMALS: normocephalic and atraumatic HEAD & SCALP: n ormocephalic and atraumatic Eye: COMMON NORMALS: conjunctivae normal CONJUNCTIVA: Yes conjunctivae normal Neck/C-Spine: COMMON NORMALS: full ROM and supple Chest: COMMONS NORMALS: normal inspection of the chest Resp: COMMON NORMALS: normal respiratory effort, No retractions, No use of accessory muscles and clear to auscultation bilaterally AUSCULTATION: clear to auscultation bilaterally Cardio: COMMON NORMALS: regular rate, regular rhythm and No murmurs present (Cardio) RATE: regular rate RHYTHM: regular rhythm Extremity: COMMON NORMALS: normal to inspection and full ROM Neuro: COMMON NORMALS: patient oriented x3, moves all extremities and no focal motor deficits Psych: COMMON NORMALS: mental status grossly normal, Normal thought process present and cooperative THOUGHT PROCESS: Normal thought process present Skin: COMMON NORMALS: no rashes or lesions noted and no wounds GENERAL SKIN EXAM: no rashes or lesions noted Course 2 Vital Signs: Vital signs: Vital Signs Temperature 98.2 F 05/17/24 15:47 Pulse Rate 84 05/17/24 15:47 Respiratory Rate 18 05/17/24 15:47 Blood Pressure 140/91 05/17/24 15:47 Pulse Oximetry 95 05/17/24 15:47 Oxygen Delivery Me thod Room Air 05/17/24 15:09 MDM - General Adult Medical Decision Making Patient presents with hypertension he has not been having any chest pain here his troponin here is normal blood work is otherwise normal will increase his metoprolol from 25 twice daily to 50 mg twice daily he is to take a log of his blood pressure and follow-up with his PCP. Medical Records I reviewed the patient's medical records. Lab Data I reviewed the patient's lab results. 05/17/24 13:46 05/17/24 13:46 Radiology Impressions Chest X-Ray 05/17/24 13:45 IMPRESSION: No acute cardiopulmonary abnormality. Laboratory Results WBC 11.32 10^3/uL (3.29-11.43) 05/17/24 13:46 RBC 5.54 10^6/uL (3.85-5.65) 05/17/24 13:46 Hgb 17.10 g/dL (11.27-16.99) H 05/17/24 13:46 Hct 51.2 % (37-53) 05/17/24 13:46 MCV 92.4 fl (82-101) 05/17/24 13:46 MCH 30.9 pg (27-33) 05/17/24 13:46 MCHC 33.4 g/dL (30-55) 05/17/24 13:46 RDW 12.7 % (12.1-15.1) 05/17/24 13:46 Plt Count 298 10^3/cmm (157-399) 05/17/24 13:46 MPV 9.2 fL (7.4-10.4) 05/17/24 13:46 Neut % (Auto) 69.3 % 05/17/24 13:46 Lymph % (Auto) 22.2 % 05/17/24 13:46 [place] % (Auto) 5.7 % 05/17/24 13:46 Eos % (Auto) 1.9 % 05/17/24 13:46 Baso % (Auto) 0.5 % 05/17/24 13:46 Neut # (Auto) 7.85 10^3/uL (1.8-7.7) H 05/17/24 13:46 Lymph # (Auto) 2.5 10^3/uL (0.8-4.8) 05/17/24 13:46 [place] # (Auto) 0.7 10^3/uL (0.2-0.9) 05/17/24 13:46 Eos # (Auto) 0.2 10^3/uL (0.0-0.8) 05/17/24 13:46 Baso # (Auto) 0.1 10^3/uL (0.0-0.1) 05/17/24 13:46 Nucleated RBC % (auto) 0 % 05/17/24 13:46 Nucleated RBCs # 0.0 /100WBC 05/17/24 13:46 Sodium 138 mmol/L (136-145) 05/17/24 13:46 Potassium 4.7 mmol/L (3.5-5.1) 05/17/24 13:46 Chloride 102 mmol/L (98-107) 05/17/24 13:46 Carbon Dioxide 25 mmol/L (22-29) 05/17/24 13:46 Anion Gap 15.7 (5-19) 05/17/24 13:46 BUN 10 mg/dL (8-23) 05/17/24 13:46 Creatinine 1.1 mg/dL (0.7-1.2) 05/17/24 13:46 GFR Calculation 66.8 mL/min (90-130) L 05/17/24 13:46 Glucose 93 mg/dL (65-115) 05/17/24 13:46 Calculated Osmolality 285 mOsm/kg (285-295) 05/17/24 13:46 Calcium 10.2 mg/dL (8.5-10.5) 05/17/24 13:46 Total Bilirubin 0.9 mg/dL (0.15-1.2) 05/17/24 13:46 AST 20 U/L (0-40) 05/17/24 13:46 ALT 37 U/L (0-41) 05/17/24 13:46 Alkaline Phosphatase 116 U/L (40-130) 05/17/24 13:46 Troponin T Baseline 11 ng/L (0-15) 05/17/24 13:46 Total Protein 7.7 g/dL (6.6-8.7) 05/17/24 13:46 Albumin 4.4 g/dL (3.5-5.2) 05/17/24 13:46 Globulin 3.3 g/dL (1.3-4.6) 05/17/24 13:46 All radiology interpretation(s) finalized by discharge EKG Data EKG 1: I personally reviewed and interpreted this EKG as follows: EKG interpretation date: 05/17/24 EKG interpretation time: 12:32 Interpretation: nsr hr [address] elevation qrs 90 qtc 399 Computer generated interpretation: Chest X-Ray 05/17/24 13:45 IMPRESSION: No acute cardiopulmonary abnormality. Discharge Plan Discharge Patient Disposition: Home Clinical Impression: Hypertension Condition: Stable Prescriptions: New metoprolol tartrate 50 mg tablet 50 mg PO BID Qty: 60 0RF Discontinued metoprolol tartrate 25 mg Tablet 25 mg PO BID@0900,2100 Qty: 120 3RF No Action atorvastatin 80 mg tablet 80 mg PO BEDTIME Qty: 90 3RF aspirin 81 mg tablet,delayed release (DR/EC) 81 mg PO QAM lisinopril 20 mg tablet 20 mg PO BID clopidogrel 75 mg Tablet 75 mg PO DAILY Qty: 90 3RF Discharge Orders: Discharge ED (Routine); Ordered 05/17/24 Ordered By: Agustín Fields Referrals: Gil Wood [Primary Care Provider] - 4-7 days Discharge Diet: Advance as tolerated Discharge Activity: Resume usual activity Patient Instructions: Hypertension (ED) Coding Level of Care Code ED Internet Marketing Director for Edita Munoz
--- NOTE | 2024-05-17 13:45 | XRR_ITS ---
PROCEDURE INFORMATION: Exam: XR Chest Exam date and time: 05/17/2024 2:03 PM Age: 68 years old Clinical indication: Shortness of breath; Additional info: HTN TECHNIQUE: Imaging protocol: Radiologic exam of the chest. Views: 1 view. COMPARISON: CR XR chest 1V portable [id number] 04/15/2024 2:33 PM FINDINGS: Lungs: No pulmonary infiltrate or consolidation. Pulmonary vascularity is within normal limits. Pleural spaces: No pleural effusion or pneumothorax. Heart/Mediastinum: Cardiomediastinal contours appear unremarkable. No cardiomegaly. Bones/joints: Visualized osseous structures show no acute abnormality. Other findings: No significant change with prior exam. XR/XR chest 1V portable [id number] IMPRESSION: No acute cardiopulmonary abnormality.
[2024-05-17] MEDS: hyDRALAzine 20 mg/mL INJ 1 mL 10 MG IVP ×2 (13:52→14:24)
[2024-05-17 13:54] VITALS: BP 189/110; PULSE 67; O2SAT 97
[2024-05-17 13:54] LABS: Basophils # 0.1 10^3/uL (0.0-0.1); Basophils % 0.5 %; Eosinophils # 0.2 10^3/uL (0.0-0.8); Eosinophils % 1.9 %; Hematocrit 51.2 % (37-53); Lymphocytes # 2.5 10^3/uL (0.8-4.8); Lymphocytes % 22.2 %; Mean Corpuscular HGB Conc 33.4 g/dL (30-55); Mean Corpuscular Hemoglobin 30.9 pg (27-33); Mean Corpuscular Volume 92.4 fl (82-101); Mean Platelet Volume 9.2 fL (7.4-10.4); Monocytes # 0.7 10^3/uL (0.2-0.9); Monocytes % 5.7 %; Neutrophils # 7.85 10^3/uL (1.8-7.7); Neutrophils % 69.3 %; Nucleated Red Blood Cells % 0 %; Platelet Count 298 10^3/cmm (157-399); Red Blood Count 5.54 10^6/uL (3.85-5.65); Red Cell Distribution Width 12.7 % (12.1-15.1); White Blood Count 11.32 10^3/uL (3.29-11.43)
[2024-05-17 14:12] LABS: Alanine Aminotransferase 37 U/L (0-41); Albumin Level 4.4 g/dL (3.5-5.2); Alkaline Phosphatase 116 U/L (40-130); Anion Gap 15.7 (5-19); Aspartate Amino Transferase 20 U/L (0-40); Blood Urea Nitrogen 10 mg/dL (8-23); Calcium 10.2 mg/dL (8.5-10.5); Carbon Dioxide 25 mmol/L (22-29); Chloride 102 mmol/L (98-107); Creatinine Clr Calc Pharmacy 63.3128; Globulin 3.3 g/dL (1.3-4.6); Glomerular Filtration Rate 66.8 mL/min (90-130); Glucose 93 mg/dL (65-115); Osmolality Calculated 285 mOsm/kg (285-295); Potassium 4.7 mmol/L (3.5-5.1); Sodium 138 mmol/L (136-145); Total Bilirubin 0.9 mg/dL (0.15-1.2); Total Protein 7.7 g/dL (6.6-8.7)
[2024-05-17 14:24] VITALS: BP 179/107; PULSE 77; O2SAT 96
--- NOTE | 2024-05-17 14:58 | ECG_ITS ---
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 Measurements Intervals [place] Rate: 67 P: 21 CO: 125 QRS: -6 QRSD: 90 T: 37 QT: 384 QTc: 405 Interpretive Statements SINUS RHYTHM MINIMAL VOLTAGE CRITERIA FOR LVH, CONSIDER NORMAL VARIANT [MEETS CRITERIA IN ONE OF: R(aVL), S(V1), R(V5), R(V5/V6)+S(V1)] NONSPECIFIC ST ELEVATION [0.05+ mV ST ELEVATION] Compared to ECG 04/15/2024 18:38:12 ST (T wave) deviation now present T-wave abnormality no longer present Electronically Signed On 05-17-2024 23:25:41 CDT by John Alarcon M.D. [id number] f
[2024-05-17] MEDS: labetalol 5 mg/mL SDV 20mL 10 MG IVP (15:05)
[2024-05-17 15:09] VITALS: BP 140/91; PULSE 84; O2SAT 95
[2024-05-17 15:32] LABS: Troponin(5th) Baseline 11 ng/L (0-15)
[2024-05-17 15:47] VITALS: BP 140/91; PULSE 84; RESP 18; TEMP 36.8; O2SAT 95
== END 2024-05-17 15:48 | disposition home or self-care (01) ==
PROVIDERS: Emergency Provider Emergency Medicine; PCP Family Medicine
DX: I10 Essential (primary) hypertension (principal); Z79.02 Long term (current) use of antithrombotics/antiplatelets; Z79.82 Long term (current) use of aspirin; I25.2 Old myocardial infarction; Z72.0 Tobacco use
CPT/HCPCS: 71045; 80053; 84484; 85025; 93005; 96374; 96375; 96376; 99285; J0360; J3490

== ENCOUNTER 2024-07-27 10:50 | Emergency (ER) | payer MEDICARE, MEDICAID, SELFPAY ==
[2024-07-27 10:55] VITALS: BP 234/125; PULSE 98; TEMP 36.4; O2SAT 92; BMI 25.0
--- NOTE | 2024-07-27 10:58 | XRR_ITS ---
PROCEDURE INFORMATION: Exam: XR Chest Exam date and time: 07/27/2024 11:03 AM Age: 68 years old Clinical indication: Pain; Angina pectoris; Patient HX: Cp, HTN TECHNIQUE: Imaging protocol: Radiologic exam of the chest. Views: 1 view. COMPARISON: CR XR chest 1V portable [id number] 05/17/2024 2:03 PM FINDINGS: Lungs: Unremarkable. No consolidation. Pleural spaces: Unremarkable. No pleural effusion. No pneumothorax. Heart/Mediastinum: Unremarkable. No cardiomegaly. Bones/joints: Unremarkable. XR/XR chest 1V portable [id number] IMPRESSION: No acute findings.
--- NOTE | 2024-07-27 10:58 | ECG_ITS ---
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 Measurements Intervals [place] Rate: 58 P: 21 AL: 138 QRS: 1 QRSD: 79 T: 43 QT: 411 QTc: 407 Interpretive Statements SINUS BRADYCARDIA Compared to ECG 05/17/2024 12:32:26 Sinus rhythm no longer present ST (T wave) deviation no longer present Electronically Signed On 07-27-2024 16:52:27 CDT by John lAarcon M.D. [id number]
[2024-07-27 11:15] VITALS: BP 199/111; PULSE 58; RESP 12; O2SAT 97
[2024-07-27 11:23] LABS: Basophils # 0.1 10^3/uL (0.0-0.1); Basophils % 0.6 %; Eosinophils # 0.4 10^3/uL (0.0-0.8); Eosinophils % 3.7 %; Hematocrit 49.8 % (37-53); Lymphocytes # 3.7 10^3/uL (0.8-4.8); Lymphocytes % 36.5 %; Mean Corpuscular HGB Conc 33.1 g/dL (30-55); Mean Corpuscular Hemoglobin 31.7 pg (27-33); Mean Corpuscular Volume 95.6 fl (82-101); Mean Platelet Volume 9.5 fL (7.4-10.4); Monocytes # 0.7 10^3/uL (0.2-0.9); Monocytes % 6.8 %; Neutrophils # 5.31 10^3/uL (1.8-7.7); Neutrophils % 52.2 %; Nucleated Red Blood Cells % 0 %; Platelet Count 294 10^3/cmm (157-399); Red Blood Count 5.21 10^6/uL (3.85-5.65); Red Cell Distribution Width 13.2 % (12.1-15.1); White Blood Count 10.18 10^3/uL (3.29-11.43)
--- NOTE | 2024-07-27 11:27 | W.ED.CHESTPA ---
HPI - Chest Pain General: Chief Complaint: Chest Pain Stated Complaint: B/P high,burning in chest Time Seen by Provider: 07/27/24 11:11 History of Present Illness: 68-year-old male presents emergency room states he just generally does not feel well. He states he felt funny this morning checked his blood pressure was high it was markedly elevated later in the day and when he arrived here as well. He did take all of his usual medications. He does have a known history of coronary artery disease and hypertension. He is not having any chest pain or shortness of breath today. He is a regular smoker and still continues to smoke. Has not had any recent cardiac evaluation. Associated symptoms: Deny abdominal pain, dyspnea or fever(s) Related Data Home Medications Medication Instructions Recorded Confirmed lisinopril 20 mg tablet 20 mg PO BID 04/15/24 07/27/24 aspirin 81 mg tablet,delayed 81 mg PO QAM 05/17/24 07/27/24 release clopidogrel 75 mg tablet 75 mg PO QAM 07/27/24 07/27/24 Previous Rx's Medication Instructions Recorded atorvastatin 80 mg tablet 80 mg PO BEDTIME #90 tabs 04/20/24 metoprolol tartrate 50 mg tablet 50 mg PO BID #60 tabs 05/17/24 amlodipine 5 mg tablet 5 mg PO DAILY #30 tabs 07/27/24 isosorbide mononitrate 30 mg 30 mg PO DAILY #30 tabs 07/27/24 tablet,extended release 24 hr Allergies Allergy/AdvReac Type Severity Reaction Status Date / Time No Known Allergies Allergy Verified 07/27/24 11:00 Review of Systems Const: Denies: fever(s) or chills Card: Denies: chest pain Resp: Denies: dyspnea GI: Denies: abdominal pain : Denies: dysuria, urinary frequency or urinary urgency Musc: Denies: neck pain or back pain Skin/Breast: Denies: rash PFSH ED PFSH: Medical History ST elevation myocardial infarction (STEMI) Tobacco abuse Hypertension Social History Smoking and tobacco/nicotine status: current every day tobacco/nicotine user Physical Exam Const: COMMON NORMALS: no acute distress GENERAL APPEARANCE: cooperative and comfortable ORIENTATION/CONSCIOUSNESS: Yes awake, Yes oriented to person, Yes oriented to place and Yes oriented to time HENMT: COMMON NORMALS: normocephalic, atraumatic and hearing grossly normal bilaterally HEAD & SCALP: normocephalic and atraumatic Resp: COMMON NORMALS: normal respiratory effort, No retractions, No use of accessory muscles and clear to auscultation bilaterally AUSCULTATION: clear to auscultation bilaterally Cardio: COMMON NORMALS: regular rate, regular rhythm and No murmurs present (Cardio) RATE: regular rate RHYTHM: regular rhythm GI: COMMON NORMALS: Soft to palpation and No hepatosplenomegaly present AUSCULTATION: Yes normoactive bowel sounds PALPATION: Yes Soft to palpation, No Tenderness to palpation present (GI), No Guarding due to palpation present (GI) and Yes No hepatosplenomegaly present Extremity: COMMON NORMALS: normal to inspection, capillary refill normal, no clubbing, cyanosis or edema, no calf tenderness and no pedal edema Neuro: SENSORIUM/ORIENTATION: Yes oriented to person, Yes oriented to place and Yes oriented to time Skin: COMMON NORMALS: no rashes or lesions noted GENERAL SKIN EXAM: no rashes or lesions noted Course Vital Signs: Vital signs: Vital Signs Temperature 97.6 F 07/27/24 10:55 Pulse Rate 79 07/27/24 14:25 Respiratory Rate 16 07/27/24 14:25 Blood Pressure 180/107 07/27/24 14:25 Pulse Oximetry 95 07/27/24 14:25 Oxygen Delivery Me thod Room Air 07/27/24 13:45 MDM - Chest Pain Medical Decision Making EKG and cardiac enzymes negative no acute changes noted. No sign of acute coronary syndrome. Will discharge home started on isosorbide mononitrate 30 mg once daily and amlodipine 5 mg daily. Blood pressure improved with hydralazine given in the emergency room. Continue his other medications particularly his aspirin. And follow-up with his primary care doctor later this week to reevaluate blood pressure Medical Records I reviewed the patient's medical records. Lab Data I reviewed the patient's lab results. 07/27/24 11:15 07/27/24 11:15 Radiology Impressions Chest X-Ray 07/27/24 10:58 IMPRESSION: No acute findings. Laboratory Results WBC 10.18 10^3/uL (3.29-11.43) 07/27/24 11:15 RBC 5.21 10^6/uL (3.85-5.65) 07/27/24 11:15 Hgb 16.50 g/dL (11.27-16.99) 07/27/24 11:15 Hct 49.8 % (37-53) 07/27/24 11:15 MCV 95.6 fl (82-101) 07/27/24 11:15 MCH 31.7 pg (27-33) 07/27/24 11:15 MCHC 33.1 g/dL (30-55) 07/27/24 11:15 RDW 13.2 % (12.1-15.1) 07/27/24 11:15 Plt Count 294 10^3/cmm (157-399) 07/27/24 11:15 MPV 9.5 fL (7.4-10.4) 07/27/24 11:15 Neut % (Auto) 52.2 % 07/27/24 11:15 Lymph % (Auto) 36.5 % 07/27/24 11:15 [place] % (Auto) 6.8 % 07/27/24 11:15 Eos % (Auto) 3.7 % 07/27/24 11:15 Baso % (Auto) 0.6 % 07/27/24 11:15 Neut # (Auto) 5.31 10^3/uL (1.8-7.7) 07/27/24 11:15 Lymph # (Auto) 3.7 10^3/uL (0.8-4.8) 07/27/24 11:15 [place] # (Auto) 0.7 10^3/uL (0.2-0.9) 07/27/24 11:15 Eos # (Auto) 0.4 10^3/uL (0.0-0.8) 07/27/24 11:15 Baso # (Auto) 0.1 10^3/uL (0.0-0.1) 07/27/24 11:15 Nucleated RBC % (auto) 0 % 07/27/24 11:15 Nucleated RBCs # 0.0 /100WBC 07/27/24 11:15 Sodium 139 mmol/L (136-145) 07/27/24 11:15 Potassium 4.2 mmol/L (3.5-5.1) 07/27/24 11:15 Chloride 102 mmol/L (98-107) 07/27/24 11:15 Carbon Dioxide 26 mmol/L (22-29) 07/27/24 11:15 Anion Gap 15.2 (5-19) 07/27/24 11:15 BUN 9 mg/dL (8-23) 07/27/24 11:15 Creatinine 1.0 mg/dL (0.7-1.2) 07/27/24 11:15 GFR Calculation 74.5 mL/min (90-130) L 07/27/24 11:15 Glucose 113 mg/dL (65-115) 07/27/24 11:15 Calculated Osmolality 287 mOsm/kg (285-295) 07/27/24 11:15 Calcium 10.0 mg/dL (8.5-10.5) 07/27/24 11:15 Total Bilirubin 1.1 mg/dL (0.15-1.2) 07/27/24 11:15 AST 21 U/L (0-40) 07/27/24 11:15 ALT 33 U/L (0-41) 07/27/24 11:15 Alkaline Phosphatase 119 U/L (40-130) 07/27/24 11:15 Troponin T Baseline 11 ng/L (0-15) 07/27/24 11:15 Troponin T 120 Minute 8.89 ng/L (0-15) 07/27/24 13:20 Delta Troponin T -2.11 ABS# (0-10) L 07/27/24 13:20 NT-Pro-B Natriuret Pep 208 pg/mL (0-125) H 07/27/24 11:15 Total Protein 7.2 g/dL (6.6-8.7) 07/27/24 11:15 Albumin 4.7 g/dL (3.5-5.2) 07/27/24 11:15 Globulin 2.5 g/dL (1.3-4.6) 07/27/24 11:15 Lipase 33 U/L (13-60) 07/27/24 11:15 All radiology interpretation(s) finalized by discharge Discharge Plan Discharge Patient Disposition: Home Clinical Impression: Hypertension, Atypical chest pain Condition: Stable Prescriptions: New amlodipine 5 mg tablet 5 mg PO DAILY Qty: 30 0RF isosorbide mononitrate 30 mg tablet extended release 24 hr 30 mg PO DAILY Qty: 30 0RF No Action atorvastatin 80 mg tablet 80 mg PO BEDTIME Qty: 90 3RF aspirin 81 mg tablet,delayed release (DR/EC) 81 mg PO QAM metoprolol tartrate 50 mg tablet 50 mg PO BID Qty: 60 0RF clopidogrel 75 mg tablet 75 mg PO QAM lisinopril 20 mg tablet 20 mg PO BID Discharge Orders: Discharge ED (Routine); Ordered 07/27/24 Ordered By: Mark Enriquez Referrals: Gil Wood [Primary Care Provider] - Discharge Diet: Usual diet Discharge Activity: Limit activity as instructed Patient Instructions: Opioid Safety, Pain Management Activity Restrictions/Additional Instructions: Thank you for choosing [facility] for your healthcare needs today. It is very important that you follow up as instructed or that you return to the Emergency Department should you have concerns or if your condition changes or worsens in any way. You were seen in the emergency room with complaint of not feeling well your blood pressure is markedly elevated your EKG and cardiac enzymes did not show any acute changes. Recommend that you start amlodipine 5 mg once daily along with isosorbide 30 mg once daily in addition to your current blood pressure regimen. community services manager will make arrangements to set you up with a cardiac stress test as an outpatient. Follow-up with your primary care doctor to recheck your blood pressure within the next few days Coding Level of Care Code ED Application Packaging Specialist for Edita Munoz
[2024-07-27] MEDS: hyDRALAzine 20 mg/mL INJ 1 mL IVP (11:36)
[2024-07-27 11:39] VITALS: BP 191/105; PULSE 62; RESP 16; O2SAT 95
[2024-07-27 11:41] LABS: Troponin(5th) Baseline 11 ng/L (0-15)
[2024-07-27 11:55] LABS: Alanine Aminotransferase 33 U/L (0-41); Albumin Level 4.7 g/dL (3.5-5.2); Alkaline Phosphatase 119 U/L (40-130); Aspartate Amino Transferase 21 U/L (0-40); Blood Urea Nitrogen 9 mg/dL (8-23); Carbon Dioxide 26 mmol/L (22-29); Chloride 102 mmol/L (98-107); Globulin 2.5 g/dL (1.3-4.6); Glomerular Filtration Rate 74.5 mL/min (90-130); Glucose 113 mg/dL (65-115); Lipase 33 U/L (13-60); NT Pro B Type Natriuretic Pept 208 pg/mL (0-125); Osmolality Calculated 287 mOsm/kg (285-295); Sodium 139 mmol/L (136-145); Total Bilirubin 1.1 mg/dL (0.15-1.2); Total Protein 7.2 g/dL (6.6-8.7)
[2024-07-27 12:07] LABS: Anion Gap 15.2 (5-19); Potassium 4.2 mmol/L (3.5-5.1)
[2024-07-27 12:28] VITALS: BP 167/101; PULSE 79; RESP 17; O2SAT 94
--- NOTE | 2024-07-27 12:58 | ECG_ITS ---
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 Measurements Intervals [place] Rate: 81 P: 39 SD: 116 QRS: 4 QRSD: 84 T: 57 QT: 388 QTc: 451 Interpretive Statements SINUS RHYTHM WITH SHORT SD INTERVAL POSSIBLE LEFT ATRIAL ENLARGEMENT [-0.1mV P-WAVE IN V1/V2] Compared to ECG 07/27/2024 10:55:51 Short SD interval now present Sinus bradycardia no longer present Electronically Signed On 07-27-2024 16:56:13 CDT by John Alarcon M.D. [id number]
[2024-07-27 13:45] VITALS: BP 135/109; PULSE 83; RESP 16; O2SAT 94
[2024-07-27 13:48] LABS: Troponin 5 2HR 8.89 ng/L (0-15)
[2024-07-27 13:49] LABS: Troponin 5 2HR Delta -2.11 ABS# (0-10)
[2024-07-27 14:25] VITALS: BP 180/107; PULSE 79; RESP 16; O2SAT 95
--- NOTE | 2024-07-27 14:32 | DCPLANNER ---
faxed outpatient lexiscan order to scheduling
== END 2024-07-27 14:29 | disposition home or self-care (01) ==
PROVIDERS: Emergency Medicine; Emergency Provider Family Medicine; PCP Family Medicine
DX: R07.89 Other chest pain (principal); I10 Essential (primary) hypertension; Z79.02 Long term (current) use of antithrombotics/antiplatelets; Z79.82 Long term (current) use of aspirin; I25.2 Old myocardial infarction; Z72.0 Tobacco use
CPT/HCPCS: 36415; 71045; 80053; 83690; 83880; 84484; 85025; 93005; 96374; 99285; J0360

== ENCOUNTER → 2024-08-24 14:09 | Outpatient (BNVA) | payer MEDICARE, MEDICAID, SELFPAY | PROVIDERS: PCP Family Medicine; Visit Provider Internal Medicine Cardiovascular Disease | DX: I25.2 Old myocardial infarction (principal); Z72.0 Tobacco use; I10 Essential (primary) hypertension; R07.9 Chest pain, unspecified | CPT/HCPCS: 99214 ==

== ENCOUNTER 2024-09-09 07:44 | Outpatient (CLI) | payer MEDICARE, MEDICAID, SELFPAY ==
--- NOTE | 2024-09-09 08:00 | USCV_ITS ---
Amado Loaiza Age: 69 Gender: M : 1955 Exam Date: 09/09/2024 08:04 Ordering Phys: Salvador Collins MD ([email or web address]) Technologist: [place] [facility] [place] HISTORY: Diameter (cm) AP x Transverse x Length Velocity (cm/s) Waveform Prox Aorta: 1.90 x 2.20 x 42.20 Biphasic Mid Aorta: 1.50 x 1.30 x 41.10 Biphasic Distal Aorta: 1.70 x 1.40 x 37.80 Biphasic Right Iliac Prox: 1.07 x 0.87 x 79.40 Biphasic Left Iliac Prox: 0.80 x 1.01 x 96.90 Biphasic Stent Prox Landing x x Aneurysmal Sac Max x x Lt Lat Sac Dim Rt Lat Sac Dim Stent Dist Landing x x Right Iliac Stent x x Left Iliac Stent x x Right Renal Art Left Renal Art FINDINGS: CONCLUSIONS No evidence of abdominal aortic or bilateral iliac aneurysm. Mild atheromatous disease Sohail Jackson MD (Electronically Signed) Final Date: 09 September 2024 09:37 S
== END 2024-09-09 07:45 | disposition home or self-care (01) ==
LOC: RAD 07:45
PROVIDERS: PCP Family Medicine; Visit Provider Internal Medicine Cardiovascular Disease
DX: Z13.6 Encounter for screening for cardiovascular disorders (principal)
CPT/HCPCS: 76706

== ENCOUNTER 2024-09-28 12:24 | Outpatient (CLI) | payer MEDICARE, MEDICAID, SELFPAY ==
--- NOTE | 2024-09-28 12:33 | ECG_ITS ---
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 Baseline heart rate was 90 beats per minute. Baseline blood pressure was 151/110 millimeters of mercury. Target heart rate was 152 beats per minute. Maximum heart rate achieved was 143, which was 94 % of the target heart rate. Maximum blood pressure was 188/114 millimeters of mercury. Total exercise time was 3 minutes 2 seconds maximum METs achieved was 4.6, maximum VO2 was 16.1 the reason for ending the test was maximum effort achieved. The patient complained of shortness of breath during the stress test, which then resolved at the end of the test. ELECTROCARDIOGRAM: BASELINE: Showed sinus rhythm, normal axis, no significant ST-T changes at the baseline noted. EXERCISE: At the peak exercise level, No significant ST-T changes suggestive of ischemia noted. RECOVERY: During the recovery period, heart rate dropped appropriately. No significant ST-T changes in the recovery suggestive of ischemia noted. CONCLUSION: 1. Exercise capacity poor 2. Heart rate response was tachycardic. 3. Blood pressure response was [hypertensive 4. Symptoms not suggestive of ischemia. 5. Electrocardiogram portion of the stress test was not suggestive of ischemia. 6. Nuclear scan will be documented separately. Electronically Signed On 10-06-2024 00:10:47 BREAKDOWN PERSON by SALVADOR COLLINS [id number]
[2024-09-28 12:47] VITALS: BMI 25.0
[2024-09-28 12:57] VITALS: BP 152/101; PULSE 92
== END 2024-09-28 12:25 | disposition home or self-care (01) ==
LOC: CDL 12:25
PROVIDERS: PCP Family Medicine; Visit Provider Internal Medicine Cardiovascular Disease
DX: R07.9 Chest pain, unspecified (principal); R06.02 Shortness of breath
CPT/HCPCS: 93017

== ENCOUNTER → 2024-10-19 08:49 | Outpatient (BNVA) | payer MEDICARE, MEDICAID, SELFPAY | PROVIDERS: PCP Family Medicine; Visit Provider Internal Medicine Cardiovascular Disease | DX: I25.10 Atherosclerotic heart disease of native coronary artery without angina pectoris (principal); I25.2 Old myocardial infarction; I10 Essential (primary) hypertension; Z87.898 Personal history of other specified conditions; F17.200 Nicotine dependence, unspecified, uncomplicated | CPT/HCPCS: 99213 ==

== ENCOUNTER 2024-11-08 12:11 | Outpatient (CLI) | payer MEDICARE, MEDICAID, SELFPAY ==
--- NOTE | 2024-11-08 12:14 | US_ITS ---
WS: [id number] RIGHT UPPER QUADRANT ULTRASOUND HISTORY: FLANK PAIN COMPARISON: None available. Liver: 14.1 cm in length. Normal size liver and echogenicity. No bile duct dilatation or mass. Portal Vein: Normal hepatopetal flow with monophasic waveform. Gallbladder: Normally distended gallbladder. No stones identified. There is a small amount of sludge within the gallbladder. CBD: 0.4 cm Pancreas: Not visualized. Right kidney: 9.9 cm in length. Normal size and echogenicity. No hydronephrosis or mass. Aorta and IVC: Unremarkable abdominal aorta and IVC. No ascites. US/US abdomen limited 27089 IMPRESSION: 1. No cholelithiasis. 2. Very small amount of gallbladder sludge. No pericholecystic fluid or gallbl adder wall thickening. 3. Normal common bile duct.
== END 2024-11-08 12:12 | disposition home or self-care (01) ==
LOC: RAD 12:13
PROVIDERS: PCP Family Medicine; Visit Provider Nurse Practitioner Family
DX: R10.11 Right upper quadrant pain (principal); R93.89 Abnormal findings on diagnostic imaging of other specified body structures
CPT/HCPCS: 76705

== ENCOUNTER 2025-03-21 10:55 | Emergency (ER) | payer MEDICARE, MEDICAID, SELFPAY ==
[2025-03-21] VITALS (7 sets, daily range): BP systolic 127–175; BP diastolic 86–98; PULSE 61–72; RESP 14–18; TEMP 36.6; O2SAT 94–98
--- NOTE | 2025-03-21 11:19 | CT_ITS ---
WS: [id number] CT HEAD TECHNIQUE: Noncontrast CT of the head obtained from the skullbase to the vertex. CLINICAL INFORMATION: Symptoms of acute stroke COMPARISON: None. DLP: [address] scans at [facility] use at least one of these dose optimization techniques: automated exposure control; mA and/or kV adjustment per patient size (includes targeted exams where dose is matched to clinical indication); or iterative reconstruction. FINDINGS: No evidence of intracranial hemorrhage or mass effect. Ventricular system and basal cisterns are patent. Mild small vessel changes with mild parenchymal volume loss. No extra-axial fluid collections. No evidence of mass or mass effect. Tiny calcification in the marcella. Small chronic lacunar infarct along the RIGHT frontal horn Paranasal sinuses and mastoid air cells are well aerated. .Normal visualized soft tissues. CT/CT head thrombolytic 45788 IMPRESSION: 1. No evidence of intracranial hemorrhage or mass effect. 2. No acute intracranial findings. Notified Mark Enriquez DO at 03/21/2025 11:33 AM.
--- NOTE | 2025-03-21 11:19 | ECG_ITS ---
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 Measurements Intervals [place] Rate: 64 P: 23 TX: 135 QRS: 12 QRSD: 85 T: 62 QT: 386 QTc: 400 Interpretive Statements SINUS RHYTHM Compared to ECG 07/27/2024 13:03:03 Short TX interval no longer present Electronically Signed On 03-22-2025 06:27:46 CDT by Cheryl Trivedi M.D. [id number] [id number]
[2025-03-21 11:23] LABS: Glucose Point of Care 107 mg/dL (70-110)
--- NOTE | 2025-03-21 11:30 | W.ED.NEUROSD ---
HPI - Neuro Symptoms/Deficit General: Chief Complaint: Neuro Symptoms/Deficit Stated Complaint: left side face numbness Time Seen by Provider: 03/21/25 11:19 History of Present Illness: 69-year-old male presents emergency room with complaint of left-sided facial numbness that began approximately an hour and a half prior to arrival which would have been at 930. When I seen the patient in the emergency room his NIH is 2 initially has a little bit of weakness in the left side of his face and describing some decreased sensation on the left side of his face although with scratch test he reports both feel about the same. He is not on any anticoagulants. He states he woke up this morning and he was normal. He is already on clopidogrel and aspirin no statins. Associated symptoms: Deny chest pain Related Data Home Medications ?Medication ?Instructions ?Recorded ?Confirmed aspirin 81 mg tablet,delayed 81 mg PO QAM 05/17/24 03/21/25 release clopidogrel 75 mg tablet 75 mg PO QAM 07/27/24 03/21/25 Previous Rx's ?Medication ?Instructions ?Recorded metoprolol tartrate 50 mg tablet 50 mg PO BID #60 tabs 05/17/24 amlodipine 10 mg tablet 10 mg PO DAILY #90 tabs 08/24/24 valsartan 160 mg tablet 160 mg PO DAILY #90 tabs 08/24/24 Allergies Allergy/AdvReac Type Severity Reaction Status Date / Time No Known Allergies Allergy Verified 10/19/24 09:01 Review of Systems Const: Denies: fever(s) or chills Card: Denies: chest pain Resp: Denies: dyspnea GI: Denies: abdominal pain : Denies: dysuria, urinary frequency or urinary urgency Musc: Denies: neck pain or back pain Skin/Breast: Denies: rash PFS ED PFSH: Medical History ST elevation myocardial infarction (STEMI) Tobacco abuse Hypertension Social History Smoking and tobacco/nicotine status: current every day tobacco/nicotine user (1 ppd) NIH stroke score NIHSS: Level Of Consciousness - 1a: 0 Level Of Consciousness Questions - 1b: Both Correct Level Of Consciousness Commands - 1c: Both Correct Best Gaze - 2: Normal Visual [place] - 3: No Visual Loss Facial Palsy - 4: Minor Paralysis Motor Arm Right - 5: No Drift Motor Arm Left - 5: No Drift Motor Leg Right - 6: No Drift Motor Leg Left - 6: No Drift Limb Ataxia - 7: Absent Sensory - 8: Mild To Moderate Loss Best Language - 9: No Aphasia Dysarthia - 10: Normal Extinction And Inattention - 11: 0 Score: Total Score: 2 Physical Exam Const: GENERAL APPEARANCE: cooperative ORIENTATION/CONSCIOUSNESS: Yes awake, Yes oriented to person, Yes oriented to place and Yes oriented to time HENMT: COMMON NORMALS: normocephalic, atraumatic and hearing grossly normal bilaterally HEAD & SCALP: normocephalic and atraumatic Resp: COMMON NORMALS: normal respiratory effort, No retractions, No use of accessory muscles and clear to auscultation bilaterally AUSCULTATION: clear to auscultation bilaterally Cardio: COMMON NORMALS: regular rate, regular rhythm and No murmurs present (Cardio) RATE: regular rate RHYTHM: regular rhythm GI: COMMON NORMALS: Soft to palpation and No hepatosplenomegaly present AUSCULTATION: Yes normoactive bowel sounds PALPATION: Yes Soft to palpation, No Tenderness to palpation present (GI), No Guarding due to palpation present (GI) and Yes No hepatosplenomegaly present Extremity: COMMON NORMALS: normal to inspection, capillary refill normal, no clubbing, cyanosis or edema, no calf tenderness and no pedal edema Neuro: SENSORIUM/ORIENTATION: Yes oriented to person, Yes oriented to place and Yes oriented to time Skin: COMMON NORMALS: no rashes or lesions noted GENERAL SKIN EXAM: no rashes or lesions noted Course Vital Signs: Vital signs: Vital Signs Temperature 98 F 03/21/25 11:17 Pulse Rate 64 03/21/25 15:50 Respiratory Rate 16 03/21/25 14:43 Blood Pressure 143/95 03/21/25 15:50 Pulse Oximetry 95 03/21/25 15:50 Oxygen Delivery Me thod Room Air 03/21/25 14:43 MDM - Neuro Symptoms/Deficit Medical Decision Making Patient had previously been on a statin was unable to tolerate and it was stopped. EKGs and labs reviewed as found on the chart. EKG shows a normal sinus rhythm no acute ST changes noted rate of 64. Reviewed findings with patient his symptoms have all resolved at this point on repeat exam he is completely symptom-free. He previously had been on a statin but was unable to tolerate it. Will start him on clopidogrel and aspirin. Unfortunately we will not be able to put him on a statin because of his previous intolerance. Will set him up for an outpatient stress test. Return if he has further problems. Medical Records I reviewed the patient's medical records. Lab Data I reviewed the patient's lab results. 03/21/25 11:22 03/21/25 11:[address] 03/21/25 11:19 IMPRESSION: 1. No evidence of intracranial hemorrhage or mass effect. 2. No acute intracranial findings. Notified Mark Enriquez DO at 03/21/2025 11:33 AM. Laboratory Results WBC 9.86 10^3/uL (3.29-11.43) 03/21/25 11:22 RBC 5.65 10^6/uL (3.85-5.65) 03/21/25 11:22 Hgb 17.50 g/dL (11.27-16.99) H 03/21/25 11:22 Hct 52.0 % (37-53) 03/21/25 11:22 MCV 92.0 fl (82-101) 03/21/25 11:22 MCH 31.0 pg (27-33) 03/21/25 11:22 MCHC 33.7 g/dL (30-55) 03/21/25 11:22 RDW 13.0 % (12.1-15.1) 03/21/25 11:22 Plt Count 293 10^3/cmm (157-399) 03/21/25 11:22 MPV 9.3 fL (7.4-10.4) 03/21/25 11:22 Neut % (Auto) 58.0 % 03/21/25 11:22 Lymph % (Auto) 29.5 % 03/21/25 11:22 [place] % (Auto) 6.9 % 03/21/25 11:22 Eos % (Auto) 4.4 % 03/21/25 11:22 Baso % (Auto) 0.9 % 03/21/25 11:22 Neut # (Auto) 5.72 10^3/uL (1.8-7.7) 03/21/25 11:22 Lymph # (Auto) 2.9 10^3/uL (0.8-4.8) 03/21/25 11:22 [place] # (Auto) 0.7 10^3/uL (0.2-0.9) 03/21/25 11:22 Eos # (Auto) 0.4 10^3/uL (0.0-0.8) 03/21/25 11:22 Baso # (Auto) 0.1 10^3/uL (0.0-0.1) 03/21/25 11:22 Nucleated RBC % (auto) 0 % 03/21/25 11:22 Nucleated RBCs # 0.0 /100WBC 03/21/25 11:22 PT 12.70 SECONDS (12.1-14.9) 03/21/25 11:22 INR 0.89 (0.8-1.2) 03/21/25 11:22 APTT 30.2 SECONDS (23.9-36.7) 03/21/25 11:22 Sodium 139 mmol/L (136-145) 03/21/25 11:22 Potassium 4.5 mmol/L (3.5-5.1) 03/21/25 11:22 Chloride 104 mmol/L (98-107) 03/21/25 11:22 Carbon Dioxide 23 mmol/L (22-29) 03/21/25 11:22 Anion Gap 16.5 (5-19) 03/21/25 11:22 BUN 9 mg/dL (8-23) 03/21/25 11:22 Creatinine 1.1 mg/dL (0.7-1.2) 03/21/25 11:22 GFR Calculation 66.6 mL/min (90-130) L 03/21/25 11:22 Glucose 80 mg/dL (65-115) 03/21/25 11:22 POC Glucose 107 mg/dL (70-110) 03/21/25 11:21 Calculated Osmolality 286 mOsm/kg (285-295) 03/21/25 11:22 Calcium 10.2 mg/dL (8.5-10.5) 03/21/25 11:22 Total Bilirubin 0.7 mg/dL (0.15-1.2) 03/21/25 11:22 AST 16 U/L (0-40) 03/21/25 11:22 ALT 16 U/L (0-41) 03/21/25 11:22 Alkaline Phosphatase 95 U/L (40-130) 03/21/25 11:22 Troponin T Baseline 9 ng/L (0-15) 03/21/25 11:22 Troponin T 120 Minute 7.63 ng/L (0-15) 03/21/25 13:46 Delta Troponin T -1.37 ABS# (0-10) L 03/21/25 13:46 Total Protein 7.2 g/dL (6.6-8.7) 03/21/25 11:22 Albumin 4.2 g/dL (3.5-5.2) 03/21/25 11:22 Globulin 3.0 g/dL (1.3-4.6) 03/21/25 11:22 Urine Color Yellow (Yellow) 03/21/25 13:02 Urine Appearance Clear (CLEAR) 03/21/25 13:02 Urine pH 6.5 (5-7) 03/21/25 13:02 Ur Specific [place] 1.007 (1.005-1.030) 03/21/25 13:02 Urine Protein Negative (Negative) 03/21/25 13:02 Urine Glucose (UA) Negative (Normal) 03/21/25 13:02 Urine Ketones Negative (Negative) 03/21/25 13:02 Urine Blood Negative (Negative) 03/21/25 13:02 Urine Nitrate Negative (Negative) 03/21/25 13:02 Urine Bilirubin Negative (Negative) 03/21/25 13:02 Urine Urobilinogen 1.0 mg/dL (Negative) 03/21/25 13:02 Ur Leukocyte Esterase Negative (Negative) 03/21/25 13:02 Urine RBC 0-2 /hpf (0-2) 03/21/25 13:02 Urine WBC 0-5 /hpf (0-5) 03/21/25 13:02 Ur Squamous Epith Cells 0-5 /hpf (0-5) 03/21/25 13:02 Amorphous Sediment Not Reportable 03/21/25 13:02 Urine Bacteria None seen /hpf (NONE) 03/21/25 13:02 Hyaline Casts 0.40 /lpf 03/21/25 13:02 Urine Opiates Screen Negative ng/mL (Negative) 03/21/25 13:02 Ur Barbiturates Screen Negative ng/mL (Negative) 03/21/25 13:02 Ur Phencyclidine Scrn Negative ng/mL (Negative) 03/21/25 13:02 Ur Amphetamines Screen Negative ng/mL (Negative) 03/21/25 13:02 U Benzodiazepines Scrn Negative ng/mL (Negative) 03/21/25 13:02 Urine Cocaine Screen Negative ng/mL (Negative) 03/21/25 13:02 U Marijuana (THC) Screen Negative ng/mL (Negative) 03/21/25 13:02 All radiology interpretation(s) finalized by discharge Discharge Plan Discharge Patient Disposition: Home Clinical Impression: Transient cerebral ischemia, Atypical chest pain Condition: Stable Prescriptions: No Action amlodipine 10 mg tablet 10 mg PO DAILY Qty: 90 3RF valsartan 160 mg tablet 160 mg PO DAILY Qty: 90 3RF aspirin 81 mg tablet,delayed release (DR/EC) 81 mg PO QAM metoprolol tartrate 50 mg tablet 50 mg PO BID Qty: 60 0RF clopidogrel 75 mg tablet 75 mg PO QAM Discharge Orders: Discharge ED (Routine); Ordered 03/21/25 Ordered By: Mark Enriquez Referrals: Gil Wood [Primary Care Provider, Family Practice] Discharge Diet: Usual diet Discharge Activity: Resume usual activity Patient Instructions: Transient Ischemic Attack (ED), Opioid Safety, Pain Management Activity Restrictions/Additional Instructions: Thank you for choosing [facility] for your healthcare needs today. It is very important that you follow up as instructed or that you return to the Emergency Department should you have concerns or if your condition changes or worsens in any way. You were seen in the emergency room with concerns of left-sided facial numbness which had resolved by the time we completed your workup. You are already on appropriate antiplatelet therapy in the forms of aspirin and clopidogrel. Usually we would recommend a anticholesterol medicine (statin) however you advised us that you had previously been on 1 and were not able to tolerate it so we did not restart that today. Will set up a follow-up appointment with the neurologist so they can evaluate you further for secondary prevention. Print Language: Yakut Coding Level of Care Code ED Publications Inspector for Edita Munoz
[2025-03-21 11:31] LABS: Basophils # 0.1 10^3/uL (0.0-0.1); Basophils % 0.9 %; Eosinophils # 0.4 10^3/uL (0.0-0.8); Eosinophils % 4.4 %; Lymphocytes # 2.9 10^3/uL (0.8-4.8); Lymphocytes % 29.5 %; Mean Corpuscular HGB Conc 33.7 g/dL (30-55); Mean Platelet Volume 9.3 fL (7.4-10.4); Monocytes # 0.7 10^3/uL (0.2-0.9); Monocytes % 6.9 %; Neutrophils # 5.72 10^3/uL (1.8-7.7); Nucleated Red Blood Cells % 0 %; Platelet Count 293 10^3/cmm (157-399); Red Blood Count 5.65 10^6/uL (3.85-5.65); White Blood Count 9.86 10^3/uL (3.29-11.43)
[2025-03-21 11:42] LABS: INR 0.89 (0.8-1.2)
[2025-03-21 11:43] LABS: Partial Thromboplastin Time 30.2 SECONDS (23.9-36.7)
[2025-03-21 11:50] LABS: Alanine Aminotransferase 16 U/L (0-41); Albumin Level 4.2 g/dL (3.5-5.2); Alkaline Phosphatase 95 U/L (40-130); Blood Urea Nitrogen 9 mg/dL (8-23); Calcium 10.2 mg/dL (8.5-10.5); Carbon Dioxide 23 mmol/L (22-29); Chloride 104 mmol/L (98-107); Glomerular Filtration Rate 66.6 mL/min (90-130); Glucose 80 mg/dL (65-115); Osmolality Calculated 286 mOsm/kg (285-295); Sodium 139 mmol/L (136-145); Total Bilirubin 0.7 mg/dL (0.15-1.2); Total Protein 7.2 g/dL (6.6-8.7)
[2025-03-21 11:51] LABS: Anion Gap 16.5 (5-19); Aspartate Amino Transferase 16 U/L (0-40); Potassium 4.5 mmol/L (3.5-5.1)
[2025-03-21 13:21] LABS: Bilirubin Urine Negative (Negative); Blood Urine Negative (Negative); Glucose Urine UA Negative (Normal); Ketones Urine Negative (Negative); Leukocyte Esterase Urine Negative (Negative); Nitrate Urine Negative (Negative); Protein Urine Negative (Negative); Specific Gravity, Urine 1.007 (1.005-1.030); Urine Appearance Clear (CLEAR); Urine Color Yellow (Yellow); pH Urine 6.5 (5-7)
[2025-03-21 13:23] LABS: Add Urine Microscopic? YES; Bacteria Urine None Seen /hpf; RBC Urine 0-2 /hpf (0-2); Squamous Epithelial Cell Urine 0-5 /hpf (0-5); WBC Urine 0-5 /hpf (0-5)
[2025-03-21 13:28] LABS: Amphetamines Screen Urine Negative (Negative); Barbiturates Screen Urine Negative (Negative); Benzodiazepines Screen Urine Negative (Negative); Cocaine Screen Urine Negative (Negative); Opiate Screen Urine Negative (Negative); PCP Screen Urine Negative (Negative); THC Screen Urine Negative (Negative)
[2025-03-21 14:17] LABS: Troponin(5th) Baseline 9 ng/L (0-15)
[2025-03-21 14:18] LABS: Troponin 5 2HR 7.63 ng/L (0-15)
[2025-03-21 14:23] LABS: Troponin 5 2HR Delta -1.37 ABS# (0-10)
--- NOTE | 2025-03-21 15:23 | ECG_ITS ---
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 Measurements Intervals Wiggins Rate: 57 P: 24 ND: 137 QRS: 16 QRSD: 84 T: 63 QT: 422 QTc: 413 Interpretive Statements SINUS BRADYCARDIA Compared to ECG 03/21/2025 11:49:43 Sinus rhythm no longer present Electronically Signed On 03-22-2025 06:40:02 CDT by Cheryl Trivedi M.D. [email or web address]
--- NOTE | 2025-03-24 08:41 | PC.NURSE ---
neurology referral sent.
--- NOTE | 2025-03-31 08:09 | DCPLANNER ---
faxed lexiscan order to scheduling
--- NOTE | 2025-04-01 18:07 | DCPLANNER ---
messaged neuro to see if we can get a sooner appt per Dr. Enriquez
== END 2025-03-21 15:58 | disposition home or self-care (01) ==
PROVIDERS: Emergency Provider Family Medicine; PCP Family Medicine
DX: G45.9 Transient cerebral ischemic attack, unspecified (principal); R07.89 Other chest pain; Z79.82 Long term (current) use of aspirin; Z79.02 Long term (current) use of antithrombotics/antiplatelets; F17.210 Nicotine dependence, cigarettes, uncomplicated; I10 Essential (primary) hypertension
CPT/HCPCS: 36415; 36416; 70450; 80053; 80306; 81001; 82962; 84484; 85025; 85610; 85730; 93005; 99285

== ENCOUNTER 2025-04-27 11:29 | Outpatient (CLI) | payer MEDICARE, MEDICAID, SELFPAY ==
--- NOTE | 2025-04-27 11:36 | ECG_ITS ---
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 Interpretive Statements EXERCISE STRESS TEST EXERCISE DATA: The patient was exercised by Moisés protocol. Baseline heart rate was 118 beats per minute. Baseline blood pressure was 139/112 millimeters of mercury. Maximal predicted heart rate was 152 beats per minute. Maximum heart rate achieved was 152 which was 100% of the maximum predicted heart rate. Maximum blood pressure was 204/119 millimeters of mercury. Total exercise time was 3 MINUTES. Maximum METs achieved was 4.6.The reason for ending the test was maximal effort achieved. The patient complained of shortness of breath during the stress test, which then resolved at the end of the test. ELECTROCARDIOGRAM: BASELINE: Showed sinus tachycardia, normal axis, no significant ST-T changes at the baseline noted. [] EXERCISE: At the peak exercise level, [] No significant ST-T changes suggestive of ischemia noted. [] RECOVERY: During the recovery period, heart rate dropped appropriately. No significant ST-T changes in the recovery suggestive of ischemia noted. [] CONCLUSION: 1. Exercise capacity is poor 2. Heart rate response was appropriate. 3. Blood pressure response was appropriate 4. Symptoms not suggestive of ischemia. 5. Stress test was not suggestive of ischemia. Electronically Signed On 05-14-2025 13:38:33 CDT by John Alarcon M.D. [email or web address]
[2025-04-27 11:37] VITALS: BMI 25.8
[2025-04-27 11:52] VITALS: BP 153/90; PULSE 124
== END 2025-04-27 11:30 | disposition home or self-care (01) ==
LOC: CDL 11:31
PROVIDERS: PCP Family Medicine; Visit Provider Nurse Practitioner Family
DX: R07.9 Chest pain, unspecified (principal)
CPT/HCPCS: 93017

== ENCOUNTER → 2025-05-03 12:16 | Outpatient (BNVA) | payer MEDICARE, MEDICAID, SELFPAY | PROVIDERS: PCP Family Medicine; Visit Provider Internal Medicine Cardiovascular Disease | DX: I25.10 Atherosclerotic heart disease of native coronary artery without angina pectoris (principal); E78.5 Hyperlipidemia, unspecified; M60.80 Other myositis, unspecified site; I25.2 Old myocardial infarction; I10 Essential (primary) hypertension; F17.200 Nicotine dependence, unspecified, uncomplicated | CPT/HCPCS: 99214 ==

== ENCOUNTER → 2025-06-24 10:29 | Outpatient (BNVA) | payer MEDICARE, MEDICAID, SELFPAY | PROVIDERS: PCP Family Medicine; Referring Provider Family Medicine; Visit Provider Nurse Practitioner | DX: G45.9 Transient cerebral ischemic attack, unspecified (principal); I49.9 Cardiac arrhythmia, unspecified; I99.8 Other disorder of circulatory system | CPT/HCPCS: 99203 ==